=== PATIENT | female | born 1965 | race Caucasian/White ===

== ENCOUNTER 2017-01-14 11:56 | Day surgery (SDC) | payer BC ==
[2017-01-14] MEDS ORDERED: LACTATED RINGERS 1,000 ML IV ONE ×2 (12:52→17:00)
[2017-01-14] MEDS ORDERED: MIDAZOLAM 2 MG/2 ML VIAL IVP ONE (16:20)
[2017-01-14] MEDS ORDERED: fentaNYL 250 MCG/5 ML VIAL IVP ONE (16:20)
== END 2017-01-14 11:57 | disposition home or self-care (01) ==
PROC: 0DJD8ZZ Inspection of Lower Intestinal Tract, Via Natural or Artificial Opening Endoscopic (ICD-10-PCS; principal; 2017-01-14 13:00)
DX: Z12.11 Encounter for screening for malignant neoplasm of colon (principal); K64.8 Other hemorrhoids; Z87.891 Personal history of nicotine dependence
CPT/HCPCS: 45378; J3010; J7120

== ENCOUNTER 2017-08-28 14:59 | Outpatient (CLI) | payer BC ==
--- NOTE | 2017-09-03 17:20 | Mammography Report ---
DIGITAL SCREENING MAMMOGRAM: 08/28/2017 CLINICAL INDICATION: A 52-year-old with history of late childbearing for screening. TECHNIQUE: Routine CC and MLO projections as well as bilateral laterally exaggerated craniocaudal vi ews were obtained of the breasts. The patient reports having had mammograms in [place] more than 10 years ago, and the facility reports that the previous examinations have been purged. As such, this will serve as a new baseline. The breasts demonstrate heterogeneously dense fibroglandular parenchyma bilaterally. In the left out er breast centrally, there is a group of calcifications. Further evaluation with spot magnification views is recommended. No definite associated mass is appreciated. No mammographically suspicious fi ndings are appreciated in the right breast. IMPRESSION: INCOMPLETE EXAMINATION. RECOMMENDATION: ADDITIONAL EVALUATION OF THE LEFT BREAST ABOVE. BIRADS CATEGORY: 0, INCOMPLETE. STANDARD QUALIFYING STATEMENTS 1. This examination was reviewed with the aid of Computed-Aided Detection (CAD). 2. A negative or benign imaging report should not delay biopsy if clinically suspicious findings are present. Consider surgical consultation if warranted. More than 5% of cancers are not identified b y imaging. 3. Dense breasts may obscure an underlying neoplasm. JOB #: [id number] EXT JOB #:[id number]
== END 2017-08-28 15:00 | disposition home or self-care (01) ==
LOC: DI.S 14:59
PROVIDERS: ATTEND Physician Assistant
DX: Z12.31 Encounter for screening mammogram for malignant neoplasm of breast (principal); R92.1 Mammographic calcification found on diagnostic imaging of breast
CPT/HCPCS: 77067

== ENCOUNTER 2017-09-30 14:29 | Outpatient (CLI) | payer OTHER ==
--- NOTE | 2017-09-30 18:53 | Mammography Report ---
DIGITAL DIAGNOSTIC LEFT MAMMOGRAM: 09/30/2017 CLINICAL INDICATION: Calcifications left outer breast. TECHNIQUE: Left true lateral and spot magnification views. COMPARISON: 08/28/2017 The left breast again demonstrates heterogeneously dense fibroglandular parenchyma. The calcificatio ns in question, in the left lower outer central breast, demonstrate coarse morphology on spot magnifi cation views. No associated mass is identified. IMPRESSION: PROBABLE BENIGN CALCIFICATIONS IN THE LEFT LOWER OUTER BREAST. RECOMMENDATION: DIAGNOSTIC LEFT MAMMOGRAM IN SIX MONTHS. BIRADS CATEGORY: 3, PROBABLE BENIGN FINDINGS. STANDARD QUALIFYING STATEMENTS 1. This examination was reviewed with the aid of Computed-Aided Detection (CAD). 2. A negative or benign imaging report should not delay biopsy if clinically suspicious findings are present. Consider surgical consultation if warranted. More than 5% of cancers are not identified b y imaging. 3. Dense breasts may obscure an underlying neoplasm. JOB #: [id number] EXT JOB #:
== END 2017-09-30 14:30 | disposition home or self-care (01) ==
LOC: DI 14:29
PROVIDERS: ATTEND Physician Assistant
DX: R92.1 Mammographic calcification found on diagnostic imaging of breast (principal)

== ENCOUNTER 2020-04-27 06:57 | Outpatient (CLI) | payer OTHER ==
--- NOTE | 2020-04-27 15:52 | Ultrasound Report ---
PROCEDURE: Pelvic w/Transvaginal INDICATIONS: POSTMENAPAUSAL BLEEDING TECHNIQUE: Real-time scanning was performed of the pelvic organs, with image documentation. Additional endovagi nal scanning was necessary due to incomplete visualization of the adnexal and endometrial structures by transabdominal scanning. COMPARISON: None. FINDINGS: Transabdominal scanning: Limited scanning through the kidneys shows no hydronephrosis. No pathologi c free abdominal or pelvic fluid. Endovaginal scanning: Uterus: Uterus is normal in size at 9.2 x 5.2 x 5.0 cm. The endometrium measures 3.3 mm in combined thickness. Ovaries: Right ovary measures 20 x 22 x 20 mm. Left ovary measures 21 x 22 x 14 mm. Prominent bilate ral follicles are identified. IMPRESSION: 1. Endometrial thickness is within normal limits. However, if clinical concern persists, sonohysterog suzan, MR pelvis and/or APARTMENT COMMUNITY ASSISTANT MANAGER consult is recommended. Reviewed by: Judy Gupta MD on 04/27/2020 3:51 PM PDT Approved by: Judy Gupta MD on 04/27/2020 3:51 PM PDT Station ID: [id number]
== END 2020-04-27 06:58 | disposition home or self-care (01) ==
LOC: DI 06:57
PROVIDERS: ATTEND Nurse Practitioner Family
DX: N95.0 Postmenopausal bleeding (principal)
CPT/HCPCS: 76830; 76856

== ENCOUNTER 2021-05-17 08:00 | Outpatient (CLI) | payer OTHER ==
[2021-05-17 19:55] LABS: BASOPHILS % (AUTO) 0.4 %; EOSINOPHILS % (AUTO) 0.5 %; HCT - HEMATOCRIT 44.1 % (37.0-47.0); HGB - HEMOGLOBIN 14.9 g/dL (12.0-16.0); LYMPHOCYTES # (AUTO) 1.4 10^3/uL (1.5-3.5); LYMPHOCYTES % (AUTO) 24.7 %; MEAN CORPUSCULAR HEMOGLOBIN 33.6 pg (27.0-31.0); MEAN CORPUSCULAR HGB CONC 33.8 g/dL (32.0-36.0); MEAN CORPUSCULAR VOLUME 99.5 fL (81.0-99.0); MEAN PLATELET VOLUME 10.8 fL (7.9-10.8); MONOCYTES # (AUTO) 0.4 10^3/uL (0.0-1.0); MONOCYTES % (AUTO) 7.2 %; NEUTROPHILS # (AUTO) 3.8 10^3/uL (1.5-6.6); PLT - PLATELET COUNT 236 10^3/uL (130-450); RED BLOOD COUNT 4.43 10^6/uL (4.20-5.40); RED CELL DISTRIBUTION WIDTH 11.1 % (12.0-15.0); WHITE BLOOD COUNT 5.7 x10^3/uL (4.8-10.8)
[2021-05-17 20:07] LABS: BILIRUBIN,URINE NEGATIVE (NEGATIVE); GLUCOSE, URINE (UA) NEGATIVE (NEGATIVE); KETONES,URINE (UA) 15 mg/dL (NEGATIVE); LEUKOCYTE ESTERASE, URINE NEGATIVE (NEGATIVE); NITRITE,URINE NEGATIVE (NEGATIVE); OCCULT BLOOD,URINE TRACE-INTA (NEGATIVE); PROTEIN,URINE NEGATIVE (NEGATIVE); UROBILINOGEN,URINE 0.2 (NORMAL) E.U./dL (NORMAL)
[2021-05-17 20:16] LABS: CLARITY,URINE HAZY (CLEAR)
[2021-05-17 20:27] LABS: AMORPHOUS SEDIMENT,UR Moderate /LPF; BACTERIA,URINE Few /HPF (None Seen); RBC,URINE 0-5 /HPF (0-5); SQUAMOUS EPITHELIAL CELL,UR FEW Squamous (<= Few); WBC,URINE 0-3 /HPF (0-5)
[2021-05-17 20:31] LABS: ALBUMIN 4.2 g/dL (3.2-5.5); ALBUMIN/GLOBULIN RATIO 1.5 (1.0-2.2); CALCIUM 8.9 mg/dL (8.5-10.3); CREATININE 0.8 mg/dL (0.4-1.0); POTASSIUM 3.8 mmol/L (3.5-5.0)
[2021-05-17 20:47] LABS: THYROID STIMULATING HORMONE 1.47 uIU/mL (0.34-5.60)
== END 2021-05-17 23:59 | disposition home or self-care (01) ==
LOC: LAB.S 08:00
PROVIDERS: ATTEND Physician Assistant Medical
DX: R53.83 Other fatigue (principal); R53.1 Weakness; R42 Dizziness and giddiness
CPT/HCPCS: 36415; 80053; 81001; 84443; 85025; 87086

== ENCOUNTER 2023-01-01 14:08 | Outpatient (CLI) | payer OTHER ==
--- NOTE | 2023-01-07 10:02 | Mammography Report ---
BILATERAL DIGITAL SCREENING MAMMOGRAM 3D/2D WITH EXAGGERATED CC: 01/01/2023 CLINICAL: Routine screening. Family history of breast cancer. Comparison is made to exams dated: 05/02/2020 mammogram - [facility], mammogram, and 08/28/2017 mammogram - [facility]. Both breasts are heterogeneously dense, which may obscure small masses (category c / 51-75% glandular tissue). There are benign calcifications in the left breast. No significant masses, calcifications, or other findings are seen in either breast. There has been no significant interval change. IMPRESSION: BENIGN There is no mammographic evidence of malignancy. A 1 year screening mammogram is recommended. This exam was interpreted at Station ID: [id number]. NOTE: For mammograms, a report in lay terms will be sent to the patient. Approximately 15% of breast malignancies will not be visualized mammographically. In the management of a palpable breast mass, a negative mammogram must not discourage biopsy of a clinically suspicious lesion. Electronically Signed By: Adalid mcmanus/alok:01/06/2023 18:58:35 letter sent: No_Letter ACR BI-RADS Category 2: Benign Finding(s) 3342F PARENCHYMAL PATTERN: (D) - The breast(s) demonstrate(s) heterogeneously dense fibroglandular yuki pratt. BI-RADS CATEGORY: (2) - 2 Mammogram [id number] 1 year screening LATERALITY: (B)
== END 2023-01-01 14:09 | disposition home or self-care (01) ==
LOC: DI.S 14:08
PROVIDERS: ATTEND Internal Medicine
DX: Z12.31 Encounter for screening mammogram for malignant neoplasm of breast (principal); Z80.8 Family history of malignant neoplasm of other organs or systems; Z80.3 Family history of malignant neoplasm of breast

== ENCOUNTER 2023-04-02 11:12 | Outpatient (CLI) | payer OTHER ==
[2023-04-02 14:30] LABS: BASOPHILS % (AUTO) 0.5 %; EOSINOPHILS # (AUTO) 0.1 10^3/uL (0.0-0.7); EOSINOPHILS % (AUTO) 1.6 %; HCT - HEMATOCRIT 41.8 % (37.0-47.0); HGB - HEMOGLOBIN 14.3 g/dL (12.0-16.0); LYMPHOCYTES # (AUTO) 1.8 10^3/uL (1.5-3.5); LYMPHOCYTES % (AUTO) 40.3 %; MEAN CORPUSCULAR HEMOGLOBIN 32.7 pg (27.0-31.0); MEAN CORPUSCULAR HGB CONC 34.2 g/dL (32.0-36.0); MEAN CORPUSCULAR VOLUME 95.7 fL (81.0-99.0); MEAN PLATELET VOLUME 10.7 fL (7.9-10.8); MONOCYTES # (AUTO) 0.4 10^3/uL (0.0-1.0); NEUTROPHILS # (AUTO) 2.2 10^3/uL (1.5-6.6); NEUTROPHILS % (AUTO) 49.4 %; PLT - PLATELET COUNT 250 10^3/uL (130-450); RED BLOOD COUNT 4.37 10^6/uL (4.20-5.40); RED CELL DISTRIBUTION WIDTH 11.3 % (12.0-15.0); WHITE BLOOD COUNT 4.4 x10^3/uL (4.8-10.8)
--- NOTE | 2023-04-02 14:32 | XRAY Report ---
PROCEDURE: Skull Complete INDICATIONS: ACQUIRED SKULL DEFORMITY TECHNIQUE: 4 view(s) of the skull acquired. COMPARISON: None FINDINGS: Bones: No fractures. No suspicious bony lesions. Visualized sinuses appear clear. Soft tissues: No soft tissue calcifications. No suspicious soft tissue densities. IMPRESSION: Negative skull series. If there is persistent clinical concern for radiographically occult osseous le troy, consider further evaluation with CT. Reviewed by: Toney Kraft MD on 04/02/2023 2:31 PM PDT Approved by: Toney Kraft MD on 04/02/2023 2:31 PM PDT Station ID: [id number]
[2023-04-02 15:27] LABS: THYROID STIMULATING HORMONE 1.44 uIU/mL (0.34-5.60)
== END 2023-04-02 11:13 | disposition home or self-care (01) ==
LOC: DI.S 11:12
PROVIDERS: ATTEND Internal Medicine
DX: M95.2 Other acquired deformity of head (principal); R53.1 Weakness; R53.83 Other fatigue
CPT/HCPCS: 36415; 84443; 85025